=== PATIENT | female | born 1985 | race Caucasian/White ===

== ENCOUNTER 2024-10-09 00:19 | Emergency (ER) | payer OTHER ==
[2024-10-09] MEDS ORDERED: Naloxone 0.4 MG/ML SDV IVPUSH PRN (00:44)
[2024-10-09] MEDS ORDERED: Sodium Chloride 0.9% 10 ML Syringe FLUSH PRN ×3 (00:46→00:58)
[2024-10-09 00:50] LABS: BASOPHILS ABSOLUTE AUTO 0.1 K/mm3 (0.0-0.2); BASOPHILS PERCENT AUTO 0.3 % (0.0-1.0); EOSINOPHILS ABSOLUTE AUTO 0.1 K/mm3 (0.0-0.4); EOSINOPHILS PERCENT AUTO 0.5 % (0.0-6.0); IMMATURE GRAN ABSOLUTE AUTO 0.07 K/mm3 (0.00-0.05); IMMATURE GRAN PERCENT AUTO 0.4 % (0.0-0.4); LYMPHOCYTES ABSOLUTE AUTO 3.0 K/mm3 (1.0-4.8); LYMPHOCYTES PERCENT AUTO 18.6 % (24.0-44.0); MEAN PLATELET VOLUME 9.6 fl (9.4-12.3); MONOCYTES ABSOLUTE AUTO 0.7 K/mm3 (0.0-0.8); MONOCYTES PERCENT AUTO 4.2 % (0.0-8.0); NEUTROPHILS ABSOLUTE AUTO 12.4 K/mm3 (1.8-7.7); NEUTROPHILS PERCENT AUTO 76.0 % (41.0-71.0); NRBC ABSOLUTE 0.00 (0.00-0.02); NRBC PERCENT 0.0 % (0.0-0.2); PLATELET COUNT,PLT 437 K/mm3 (150-400); RED BLOOD CELL COUNT 4.09 M/mm3 (4.10-5.30); WHITE BLOOD CELL COUNT,WBC 16.28 K/mm3 (3.9-11.3)
[2024-10-09] MEDS: Ondansetron 4 MG/2 ML SDV IVPUSH ONE (00:54)
[2024-10-09 01:07] LABS: A/G RATIO 1.1 (1-2); ALANINE AMINOTRANSFERASE,ALT 26.0 U/L (14-59); ASPARTATE AMNIOTRANSFERASE,AST 13.0 U/L (15-37); BILIRUBIN TOTAL 0.3 mg/dL (0.2-1.0); BLOOD UREA NITROGEN,BUN 22.0 mg/dL (7-18); CARBON DIOXIDE,CO2 25.0 mEq/L (21-32); CHLORIDE,CL 104.0 mEq/L (98-107); CREATININE 1.1 mg/dL (0.55-1.02); EST CRCL DRUG DOSING (CG) 64.28 mL/min; ESTIMATED GFR 66.0 mL/min (>60); GLUCOSE RANDOM 248.0 mg/dL (70-99); PROTEIN TOTAL,TP 6.6 g/dl (6.4-8.2); SODIUM,NA 140.0 mEq/L (136-145)
[2024-10-09 01:08] LABS: POTASSIUM,K 3.6 mEq/L (3.5-5.1)
[2024-10-09 01:17] LABS: LACTIC ACID 2.8 mmol/L (0.4-2.0)
[2024-10-09] MEDS: Sodium Chloride 0.9% 10 ML Syringe FLUSH PRN (01:27)
[2024-10-09] MEDS: Iopamidol 612 MG/ML 100 ML Bottle IVPUSH ONE (01:27)
== END 2024-10-09 02:44 ==
LOC: JD.ED 00:19 → EDBD 00:19 → JD.ED 02:44
DX: K68.3 Retroperitoneal hematoma (principal); R57.8 Other shock
CPT/HCPCS: 36415; 74177; 80053; 83605; 83690; 84703; 85018; 85025; 86850; 86900; 86901; 86922; 96361; 96374; 96375; 99285; J2270; J2405; J7030; Q9967